=== PATIENT | male | born 1990 | race American Indian/Alaskan Native ===

== ENCOUNTER 2017-03-31 19:28 | Emergency (ER) | payer SELFPAY ==
[2017-03-31 19:35] VITALS: PULSE 79; RESP 18; TEMP 98; O2SAT 100
--- NOTE | 2017-03-31 19:42 | ED PDOC ---
HPI: Dental Pain/Injury Time Seen by Provider: 03/31/17 19:40 Chief Complaint (Nursing): Dental Pain Chief Complaint (Provider): dental pain History Per: Patient Additional Complaint(s): 26-year-old male presents to emergency department with dental pain and swelling. Patient has broken right lower mandible molar tooth for 2 years but over the past couple of weeks he has noticed swelling to surrounding gums. Patient concerned about infection. He states he has been unable to make it to a dentist so he came here. Patient is tolerating liquids and solids and he denies fever or chills. Past Medical History Reviewed: Historical Data, Nursing Documentation, Vital Signs Vital Signs: Last Vital Signs Temp 98 F 03/31/17 19:32 Pulse 79 03/31/17 19:32 Resp 18 03/31/17 19:32 BP 159/99 H 03/31/17 19:32 Pulse Ox 100 03/31/17 19:32 - Medical History PMH: No Chronic Diseases - Surgical History Surgical History: No Surg Hx - Family History Family History: States: No Known Family Hx - Living Arrangements Living Arrangements: With Family - Social History Current smoker - smoking cessation education provided: No Alcohol: Social Drugs: Denies - Home Medications Home Medications: Ambulatory Orders Medication Instructions Recorded Guaifen/Phenyleph/Acetaminophn 1 tab PO BID #14 tab 12/04/14 [Mucinex Fast-Max Cold & Sinus 325 mg-200 mg-5] Clindamycin [Cleocin] 300 mg PO TID #21 cap 03/31/17 - Allergies Allergies/Adverse Reactions: Allergies Allergy/AdvReac Type Severity Reaction Status Date / Time carrot Allergy ANGIOEDEMA Verified 02/23/16 22:05 peanut Allergy ANGIOEDEMA Verified 02/23/16 22:05 Review of Systems ROS Statement: Except As Marked, All Systems Reviewed And Found Negative Constitutional: Negative for: Fever, Chills ENT: Positive for: Other (dental pain) Physical Exam - Reviewed Nursing Documentation Reviewed: Yes Vital Signs Reviewed: Yes - Physical Exam Appears: Positive for: Well, Non-toxic, No Acute Distress Skin: Negative for: Rash Eye Exam: Positive for: Normal appearance ENT: Positive for: Other (Fractured right lower molar tooth #30 noted with surrounding gingival swelling consistent with dental abscess, no active drainage , remaining molar teeth to right lower mandible are intact, remaining dentition intact, airway patent, uvula midline) Cardiovascular/Chest: Positive for: Regular Rate, Rhythm Respiratory: Positive for: Normal Breath Sounds Neurologic/Psych: Positive for: Alert, Oriented - ECG O2 Sat by Pulse Oximetry: 100 Pulse Ox Interpretation: Normal Medical Decision Making Medical Decision Making: Impression: dental abscess Pain meds declined in ED. 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 Patient verbalized understanding of the importance of close follow up with dentist. Disposition - Clinical Impression Clinical Impression: Dental abscess - Patient ED Disposition Is Patient to be Admitted: No Counseled Patient/Family Regarding: Diagnosis, Need For Followup, Rx Given - Disposition Referrals: Claude Del Toro DDS [Staff Provider] - Disposition: Routine/Home Disposition Time: 20:06 Condition: STABLE Additional Instructions: TAKE OVER THE COUNTER TYLENOL OR ADVIL FOR PAIN. TAKE RX MEDS DIRECTED. FOLLOW UP DARRIN WITH DENTIST Prescriptions: Clindamycin [Cleocin] 300 mg PO TID #21 cap Instructions: Dental Abscess (ED) Forms: [facility] (Irish)
[2017-03-31 20:49] VITALS: BP 147/88
== END 2017-03-31 20:32 | disposition home or self-care (01) ==
LOC: H.ER 19:28
DX: K04.7 Periapical abscess without sinus (principal)